=== PATIENT | female | born 1980 | race Caucasian/White ===

== ENCOUNTER → 2017-09-05 | Outpatient (CLI) | payer BC ==
[2017-09-05 14:02] VITALS: BP 141/88; PULSE 83; BMI 28.6
--- NOTE | 2017-09-05 14:40 | P.GSHP ---
History of Present Illness H&P Date: 09/05/17 The patient is a 36 year old white female who noted pain in her right breast after walking her dog about one month ago. The patient had a mammogram and ultrasound preformed as a part of her work up for breast pain. The ultrasound showed a lesion of concern. Patient does not feel any masses. No nipple discharge of changes of concern. Patient does not smoke. She drinks one cup of coffee/day, and on occasion ice-tea. She is not around smokers. family history: 1. two maternal aunts breast cancer 2. maternal grandfather lung cancer 3. paternal grandfather mesotheloma social history: smoke: none, stopped 8 years ago alcohol: occasional drugs: none past surgical history: 1. tubal 2. ablation/uterine for bleeding past medical history: 1. reflux menarche: 11 : first at 20, two pregnancies, did not breast feed ablation done at 30 BCP: none since 2009, used them for aout ten years hormones: none - Constitutional Constitutional: Denies chills, Denies fever - EENT Eyes: denies blurred vision, denies pain Ears: deny: decreased hearing, earache Ears, nose, mouth and throat: Denies headache, Denies sore throat - Breasts Breasts: bilateral: as per HPI - Cardiovascular Cardiovascular: Denies chest pain, Denies shortness of breath - Respiratory Respiratory: Denies cough, Denies 7 - Gastrointestinal Gastrointestinal: Denies abdominal pain, Denies diarrhea, Denies nausea, Denies vomiting - Genitourinary (Female) Genitourinary: Denies dysuria, Denies hematuria - Menstruation Menstruation: Reports as per HPI - Musculoskeletal Comment: mild arthritis in her knees - Integumentary Comment: skin lesion right lower leg, Integumentary: Reports pruritus, Denies rash - Neurological Neurological: Denies numbness, Denies weakness - Psychiatric Psychiatric: Denies anxiety, Denies depression - Endocrine Endocrine: Denies fatigue, Denies weight change - Hematologic/Lymphatic Comment: none - Allergic/Immunologic Allergic/Immunologic: Reports seasonal allergies Past Medical History Past Medical History: No Reported History History of Any Multi-Drug Resistant Organisms: None Reported Past Surgical History: Tubal Ligation Additional Past Surgical History / Comment(s): TUBAL IN 2009 Past Psychological History: No Psychological Hx Reported Smoking Status: Former smoker Past Alcohol Use History: Occasional Past Drug Use History: None Reported Medications and Allergies Home Medications Medication Instructions Recorded Confirmed Type Ibuprofen [Motrin] 600 mg PO Q6HR PRN #20 tab 05/24/14 Rx Allergies Allergy/AdvReac Type Severity Reaction Status Date / Time Penicillins Allergy Unknown Verified 05/24/14 17:56 Surgical - Exam Vital Signs Pulse BP Pulse Ox 83 141/88 99 09/05/17 13:58 09/05/17 13:58 09/05/17 13:58 - General obese - Eyes normal ocular movement, no icteric - ENT no hearing loss, no congestion - Neck no masses, trachea midline - Respiratory normal respiratory effort, clear to auscultation - Cardiovascular Rhythm: regular Heart Sounds: normal: S1, S2 - Abdomen Abdomen: soft, non tender, no guarding, no rigid, no rebound - Integumentary small patch of irritated skin right inner ankle - Neurologic no disoriented, no combative - Musculoskeletal normal gait, normal posture - Psychiatric oriented to time, oriented to person, oriented to place, speech is normal, memory intact BREAST: right breast: larger than the left breast, increased nodularity in the UOQ, corresponds to ultrasound change right axilla: no adenopathy of concern left breast: smaller than the right breast, no masses of concern left axilla: no adenopathy of concern Results Mammograms and ultrasound reviewed with Dr. Rogers Assessment and Plan Assessment: Imp/Plan: 1. right breast abnormal ultrasound/core biopsy recommended 2. discussed decrease caffeine Plan: 1. ultrasound core biopsy of hte right breast 2. decrease/stop caffeine intake CC: Dr. Ross
== END ==
LOC: WWCWWP 13:50
PROVIDERS: ATTEND Surgery
DX: N64.4 Mastodynia (principal); Z80.3 Family history of malignant neoplasm of breast; Z80.1 Family history of malignant neoplasm of trachea, bronchus and lung; Z87.891 Personal history of nicotine dependence; K21.9 Gastro-esophageal reflux disease without esophagitis

== ENCOUNTER → 2017-09-19 | Day surgery (SDC) | payer BC ==
--- NOTE | 2017-09-19 13:07 | USB ---
Discontinued right breast ultrasound biopsy HISTORY: Abnormal ultrasound Outside mammography and ultrasound was reviewed from [facility] dated 08/29/2017. The area in question was reimaged sonographically. Hypoechoic area could not be reproduced and was fe lt to reflect shadowing from overlying ligament. This was reviewed with the ordering physician and th e patient. Six-month follow-up mammography and ultrasound is advised of the right breast. Clinical Co rrelation is also recommended. Biopsy should not be delayed in the setting of a clinically suspicious abnormality. IMPRESSION: 1. BI-RADS 3 probably benign Recommendation: 1. Six-month follow-up mammography and ultrasound of the right breast.
== END ==
LOC: RADUSWWP 12:09
PROVIDERS: ATTEND Surgery
DX: R92.8 Other abnormal and inconclusive findings on diagnostic imaging of breast (principal); N63.10 Unspecified lump in the right breast, unspecified quadrant; Z53.8 Procedure and treatment not carried out for other reasons

== ENCOUNTER → 2017-09-26 | Outpatient (CLI) | payer BC ==
[2017-09-26 11:07] VITALS: BP 138/84; PULSE 87; BMI 28.6
--- NOTE | 2017-09-26 11:39 | P.PN ---
Progress Note - Text Progress Note Date: 09/26/17 Patient continues to have intermittent right breast discomfort. It seems to start from the axillary area and radiated towards the nipple. She has not had any caffeine for approximately 2 weeks. The pain is described as sharp with a burning component. It will last approximately 5-10 minutes. There are no initiating events for the pain. The patient was scheduled for a right breast core biopsy on . However when the ultrasound was repeated no lesion of concern was identified and the recommendation was 6 month follow-up mammogram and ultrasound of the right breast. Patient with no fever or chills. No redness of the breast. PE: right breast: Right breast is larger than the left breast, multiple positional exam fibrocystic changes with greatest breast density in the upper outer quadrant region, no discrete masses Right axilla: Area of tendons in the right axilla anteriorly appear to be tender and firm or than the left side to palpation no adenopathy of concern Left breast: Fibrocystic changes smaller than the right breast without dominant masses or nodules of concern Left axilla: No adenopathy of concern Impression/plan: 1. Tenderness right breast no radiographic abnormalities to warm biopsy at this time 2. Patient has stopped caffeine intake fibrocystic changes 3. Probable musculoskeletal pain Plan: 1. Repeat right breast mammogram and ultrasound in 6 months time with appointment at that time 2. Continue to stay off the caffeine 3. Ibuprofen related to musculoskeletal pain CC: DR. Angélica Ross
== END ==
LOC: WWCWWP 10:41
PROVIDERS: ATTEND Surgery
DX: N64.4 Mastodynia (principal); Z53.9 Procedure and treatment not carried out, unspecified reason

== ENCOUNTER → 2018-02-28 | Outpatient (CLI) | payer OTHER ==
--- NOTE | 2018-03-12 09:45 | MM ---
Reason for exam: follow-up at short interval from prior study. Last mammogram was performed 6 months ago. History: Family history of breast cancer in 2 maternal aunts at age 70. US discontinued breast bx RT of the right breast, September 19, 2017. Physical Findings: Nurse did not find any significant physical abnormalities on exam. MG 3D Diag Mammo W/Cad RT CC and MLO view(s) were taken of the right breast. Prior study comparison: August 27, 2017, mammogram, performed at [facility]. The breast tissue is heterogeneously dense. This may lower the sensitivity of mammography. No suspicious abnormality. No significant new findings when compared with previous films. These results were verbally communicated with the patient and result sheet given to the patient on 03/12/18. ASSESSMENT: Negative, BI-RAD 1 RECOMMENDATION: Routine screening mammogram of both breasts in 6 months. Back on schedule.
--- NOTE | 2018-03-12 09:51 | USB ---
Reason for exam: follow-up at short interval from prior study. History: Family history of breast cancer in 2 maternal aunts at age 70. US discontinued breast bx RT of the right breast, September 19, 2017. US Breast RT Right complete breast ultrasound includes all four quadrants, the retroareolar region and axilla. Finding demonstrates no cystic or solid lesion seen. No correlate to prior sonographic finding possible shadowing from ligaments. Scattered dense tissue seen. These results were verbally communicated with the patient and result sheet given to the patient on 03/12/18. ASSESSMENT: Negative, BI-RAD 1 RECOMMENDATION: Routine screening mammogram of both breasts in 6 months. Back on schedule.
== END | disposition home or self-care (01) ==
LOC: RADMAMWWP 09:11
PROVIDERS: ATTEND Surgery
DX: R92.8 Other abnormal and inconclusive findings on diagnostic imaging of breast (principal)
CPT/HCPCS: 77061; 77065

== ENCOUNTER → 2018-03-07 | Outpatient (CLI) | payer BC ==
[2018-03-07 10:25] VITALS: BP 143/83; PULSE 71; RESP 18; TEMP 98.4; BMI 25.7
--- NOTE | 2018-03-07 10:42 | P.PN ---
Subjective Progress Note Date: 03/07/18 Principal diagnosis: right breast pain Renetta is a 37-year-old white female who initially was complaining of pain in her right breast. The pain has decreased since her last visit. She has decreased her caffeine intake. Additionally she was walking her dog and the dog was pulling on a leash that she was holding with the right arm. The pain in her right chest wall/breast area has decreased since she has stopped walking the dog. The patient had a repeat right breast mammogram and ultrasound on February 28. We are waiting her mammograms from [facility] before these films are read and so no report has been issued yet on these films. The patient has not felt any lumps or masses in her breast. She does not complain of any nipple discharge or skin changes. caffiene: none at this time Nicotine: No exposure Chocolate: Minimal Medical History: 1. recently admitted with pneumonia Objective - Vital Signs Vital signs: Vital Signs Temp 98.4 F 03/07/18 10:17 Pulse 71 03/07/18 10:17 Resp 18 03/07/18 10:17 BP 143/83 03/07/18 10:17 Pulse Ox 97 03/07/18 10:17 Intake & Output 03/06/18 03/07/18 03/07/18 18:59 06:59 18:59 Weight 78.925 kg - Exam BMI 25.7 - Constitutional General appearance: Present: average body habitus, cooperative, no acute distress - EENT Eyes: Present: EOMI, dentition normal, normal appearance ENT: Present: hearing grossly normal - Neck Neck: Present: normal ROM - Respiratory Respiratory: bilateral: CTA - Cardiovascular Rhythm: regular Heart sounds: normal: S1, S2 - Gastrointestinal General gastrointestinal: Present: soft - Integumentary Integumentary: Present: normal turgor - Musculoskeletal Musculoskeletal: Present: gait normal - Psychiatric Psychiatric: Present: A&O x's 3, appropriate affect, intact judgment & insight - Additional findings Additional findings: Breast examination: Right breast is larger than the left breast, multiple positional exam fibrocystic changes but no dominant masses or nodules of concern Right axilla: No adenopathy of concern Left breast: Fibrocystic changes, increased density in the upper-outer quadrant area most likely fibrocystic changes FNA is recommended Left axilla: No adenopathy of concern Assessment and Plan Assessment: Impression: 1. Fibrocystic breast changes with increased nodularity left breast upper outer quadrant area 2. Recent mammogram awaiting the report until films from [facility] are obtained for review 3. Recently treated for pneumonia 4. Improved breast pain, patient is not taking in any caffeine, patient has stopped walking the dog pole and her right arm from a leash Plan: 1. FNA area of increased nodularity in the left breast 2. Await report on mammograms 3. Follow up next week for report on mammograms as well as FNA results CC: DR. Crowder
--- NOTE | 2018-03-07 10:48 | P.PCN ---
Date of Procedure: 03/07/18 Preoperative Diagnosis: fullness left breast UOQ Postoperative Diagnosis: same Procedure(s) Performed: left breast FNA Surgeon: Hiral Welch Pathology: other (FNA UOQ) Condition: stable Disposition: same day Indications for Procedure: Fullness left breast upper outer quadrant probable fibrocystic changes Description of Procedure: The left breast was prepped with alcohol the upper outer quadrant. A 21-gauge needle was passed into the area of increased density and several passes were placed with suction on the syringe such that cells were obtained. The cells were prepped for pathology. Patient tolerated procedure in stable condition. The patient will follow up next week for results. cc: Dr. Ross
== END | disposition home or self-care (01) ==
LOC: WWCWWP 09:10
PROVIDERS: ATTEND Surgery
DX: N64.89 Other specified disorders of breast (principal)
CPT/HCPCS: 88173; 88305

== ENCOUNTER → 2018-05-22 | Outpatient (CLI) | payer OTHER ==
[2018-05-22 12:46] VITALS: BP 121/78; PULSE 86; RESP 18; TEMP 98.2; BMI 25.6
--- NOTE | 2018-05-22 13:01 | P.PN ---
Subjective Progress Note Date: 05/22/18 Principal diagnosis: right breast pain Is a 37-year-old white female who was initially seen in August 2017 with a complaint of right breast pain after walking her dog. The patient had a mammogram and ultrasound performed at that time as part of her workup for the breast pain. The ultrasound showed a lesion of concern but when an attempt was made for ultrasound-guided biopsy the lesion was no longer noted. The patient did undergo an FNA of the left breast in February 2018 which was benign. The patient states that 2 weeks ago she noted increased pain in the right breast. It is described as burning. She has no nipple discharge or changes. No infection, or trauma to the breast. The pain has decreased, and is intermittent at this time. The pain was never cylical. The pain was never in the left breast. She does not drink caffiene, she does not smoke, no exposure to second hand smoke. She eats chocolate one a month. She does not note anything new when the pain started. She does not have periods since 2011 when she had a uterine ablation. Alejandra Risk: 0.7%, lifetime risk: 11.1% Family history: 1. 2 maternal aunts with breast cancer 2. Maternal grandfather lung cancer 3. Paternal grandfather mesotheloma Objective - Vital Signs Vital signs: Intake & Output 05/21/18 05/22/18 05/22/18 18:59 06:59 18:59 Weight 79.832 kg - Exam BMI 25.6 - Constitutional General appearance: Present: average body habitus - EENT Eyes: Present: EOMI ENT: Present: hearing grossly normal - Neck Neck: Present: normal ROM - Respiratory Respiratory: bilateral: CTA - Cardiovascular Rhythm: regular Heart sounds: normal: S1, S2 - Gastrointestinal General gastrointestinal: Present: soft - Integumentary Integumentary: Present: normal turgor - Musculoskeletal Musculoskeletal: Present: gait normal - Psychiatric Psychiatric: Present: A&O x's 3, appropriate affect, intact judgment & insight - Additional findings Additional findings: breast exam: right breast: multipositional exam, dense fibrocystic breast tissue, larger than the left breast, no discreate masses right axilla: no adenopathy of concern left breast: no masses on multipositional exam left axilla: no adenopathy of concern Assessment and Plan Assessment: impression: 1. recurrent breast pain 2. family history of breast cancer 3. asymetric breast tissue 4. fibrocystic breast disease Plan: 1. review causes of breast pain with the patient/done and book given 2. repeat right breast ultrasound 3. consider genetic counselling 4. follow up after the ultrasound CC: Dr. Ross
== END | disposition home or self-care (01) ==
LOC: WWCWWP 12:16
PROVIDERS: ATTEND Surgery
DX: Z53.9 Procedure and treatment not carried out, unspecified reason (principal)

== ENCOUNTER → 2018-06-05 | Outpatient (CLI) | payer OTHER ==
--- NOTE | 2018-06-05 10:13 | USB ---
Reason for exam: clinical finding. History: Family history of breast cancer in 2 maternal aunts at age 70. US discontinued breast bx RT of the right breast, September 19, 2017. Indicated problem(s): pain in the right breast. Physical Findings: Nurse Summary: all soft, movable (nurse ts). US Breast RT Right complete breast ultrasound includes all four quadrants, the retroareolar region and axilla. Finding demonstrates no cystic or solid lesion seen. These results were verbally communicated with the patient and result sheet given to the patient on 06/05/18. ASSESSMENT: Negative, BI-RAD 1 RECOMMENDATION: Routine screening mammogram of both breasts in 3 months. Back on schedule.
== END | disposition home or self-care (01) ==
LOC: RADUSWWP 09:18
PROVIDERS: ATTEND Surgery
DX: N64.4 Mastodynia (principal)

== ENCOUNTER → 2018-06-12 | Outpatient (CLI) | payer OTHER ==
[2018-06-12 15:47] VITALS: BP 122/73; PULSE 77; RESP 16; TEMP 98.5; BMI 25.7
--- NOTE | 2018-06-12 16:03 | P.PN ---
Progress Note - Text Progress Note Date: 06/12/18 Renetta is a 37-year-old white female who was seen last on Saturday. The patient was initially seen in August 2017 with a complaint of right breast discomfort. She had a mammogram and ultrasound performed at that time as part of her workup for the breast pain. The ultrasound showed a lesion of concern but when an attempt was made for ultrasound-guided biopsy of the lesion was no longer noted. The patient has most recently had a right breast ultrasound performed on . This is benign BIRADS 1. She is due for routine screening of both breasts in 3 months. She states that she continues to have right breast discomfort which is slightly improved. She just put a Patrick layer but has not started taking it at this time. The patient comes in today for repeat results of her ultrasound. No physicScheelal examination was performed today. Impression: 1. Right breast discomfort 2. Family history of breast cancer 3. Asymmetric breast tissue 4. Fibrocystic breast disease Plan: 1. The patient's right breast ultrasound does not show any lesions of concern 2. Repeat bilateral mammogram in 3 months with physician exam at that time Cc: Dr. Ross
== END ==
LOC: WWCWWP 15:34
PROVIDERS: ATTEND Surgery
DX: Z53.9 Procedure and treatment not carried out, unspecified reason (principal)

== ENCOUNTER → 2018-09-10 | Outpatient (CLI) | payer OTHER ==
--- NOTE | 2018-09-10 14:25 | MM ---
Reason for exam: screening (asymptomatic). Last mammogram was performed 6 months ago. History: Family history of breast cancer in 2 maternal aunts at age 70. US discontinued breast bx RT of the right breast, September 19, 2017. Physical Findings: A clinical breast exam by your physician is recommended on an annual basis and results should be correlated with mammographic findings. MG 3D Screening Mammo W/Cad Bilateral CC and MLO view(s) were taken. Prior study comparison: February 28, 2018, right breast MG 3d diag mammo w/cad RT. August 27, 2017, mammogram, performed at [facility]. The breast tissue is heterogeneously dense. This may lower the sensitivity of mammography. No significant changes when compared with prior studies. ASSESSMENT: Benign, BI-RAD 2 RECOMMENDATION: Routine screening mammogram of both breasts in 1 year.
== END | disposition home or self-care (01) ==
LOC: RADMAMWWP 08:59
PROVIDERS: ATTEND Surgery
DX: Z12.31 Encounter for screening mammogram for malignant neoplasm of breast (principal)
CPT/HCPCS: 77063; 77067

== ENCOUNTER → 2018-09-12 | Outpatient (CLI) | payer OTHER ==
[2018-09-12 09:41] VITALS: BP 135/81; PULSE 55; RESP 16; TEMP 98.4; BMI 27.3
--- NOTE | 2018-09-12 10:10 | P.PN ---
Subjective Progress Note Date: 09/12/18 Principal diagnosis: Renetta is a 37-year-old white female who was initially seen in April 2018 with a complaint of right breast pain was noted after walking her dog. She had a mammogram and ultrasound performed at that time as part of her workup. The ultrasound had shown a lesion of concern. We will attempt was made for ultrasound-guided core biopsy of the lesion was no longer present. The patient had a recent mammogram performed on , the results were benign BIRADS 2 and recommendation for repeat bilateral mammogram in 1 year. The patient tried primrose oil however she was unable to take this secondary to abdominal pain. She does not drink caffeinated beverages, she does not eat large amounts of chocolate, she does not smoke and has no exposure to secondhand smoke. She does not use control pills and is not on hormones. Family history: 1. 2 maternal aunts with breast cancer 2. Maternal grandfather lung cancer 2. Paternal grandfather mesothelioma Past Surgical History: 1. tubaligation Past Medical History: none Objective - Vital Signs Vital signs: Vital Signs Temp 98.4 F 09/12/18 09:35 Pulse 55 L 09/12/18 09:35 Resp 16 09/12/18 09:35 BP 135/81 09/12/18 09:35 Pulse Ox 98 09/12/18 09:35 Intake & Output 09/11/18 09/12/18 09/12/18 18:59 06:59 18:59 Weight 83.915 kg - Exam BMI 27.3 - Constitutional General appearance: Present: average body habitus - EENT Eyes: Present: EOMI ENT: Present: hearing grossly normal - Neck Neck: Present: normal ROM - Respiratory Respiratory: bilateral: CTA - Cardiovascular Rhythm: regular Heart sounds: normal: S1, S2 - Gastrointestinal Gastrointestinal Comment(s): no guarding or rebound General gastrointestinal: Present: soft - Musculoskeletal Musculoskeletal: Present: gait normal - Psychiatric Psychiatric: Present: A&O x's 3, appropriate affect, intact judgment & insight - Additional findings Additional findings: Breast examination: Right breast: Slightly larger than left breast multiple positional exam no dominant masses or nodules of concern Right axilla: No adenopathy of concern left breast: Multiple positional exam fibrocystic changes Left axilla: No adenopathy of concern Mammogram results 09-10-18 reviewed Assessment and Plan Assessment: Impression: 1. Resolved mastodynia 2.fibrocystic breast disease 3. asymetric breast (right larger than left) 4. family history of cancer Plan: 1. repeat mammogram in 1 year with appointment CC: Vandana
== END ==
LOC: WWCWWP 08:55
PROVIDERS: ATTEND Surgery
DX: Z53.9 Procedure and treatment not carried out, unspecified reason (principal)

== ENCOUNTER → 2019-02-10 | Outpatient (CLI) | payer OTHER ==
--- NOTE | 2019-02-10 14:56 | XR ---
EXAMINATION TYPE: XR KUB DATE OF EXAM: 02/10/2019 1:36 PM CLINICAL HISTORY: Nephrolithiasis TECHNIQUE: Single supine KUB image of the abdomen is obtained. COMPARISON: None. FINDINGS: Multiple phleboliths are seen within the pelvis. No sizable calcifications overlying the re nal shadows or courses of the ureters. Moderate degree colonic fecal stasis in the right hemicolon ae rated osseous structures appear intact. No dilated large or small bowel IMPRESSION: No sizable calculi overlying the renal shadows or courses of the ureters. Numerous phlebo liths within the pelvis.
== END | disposition home or self-care (01) ==
LOC: RADXRMAIN 13:09
PROVIDERS: ATTEND Urology
DX: I87.8 Other specified disorders of veins (principal)
CPT/HCPCS: 74018

== ENCOUNTER → 2019-03-20 | Outpatient (CLI) | payer OTHER ==
--- NOTE | 2019-03-20 16:17 | US ---
EXAMINATION TYPE: US kidneys/renal and bladder DATE OF EXAM: 03/20/2019 COMPARISON: NONE CLINICAL HISTORY: N20.0 Calculus of kidney. Family history of polycystic kidneys EXAM MEASUREMENTS: Right Kidney: 12.3 x 7.5 x 6.9 cm Left Kidney: 13.3 x 7.3 x 6.4 cm Right Kidney: Innumerable renal cysts. Largest measuring 6.2 x 5.4 x 4.4 cm. Multiple echogenic foci visualized with twinkle artifact largest measuring 1.3 cm Left Kidney: Innumerable renal cysts largest measuring 3.2 x 2.5 x 2.9 cm. Multiple echogenic foci vi sualized, largest measuring 0.5 cm Bladder: wnl Bilateral Jets seen: Yes IMPRESSION: Innumerable cysts noted bilaterally as discussed above. Findings compatible polycystic kidney disease .
== END | disposition home or self-care (01) ==
LOC: RADUSWWP 15:35
PROVIDERS: ATTEND Urology
DX: N28.1 Cyst of kidney, acquired (principal)
CPT/HCPCS: 76770

== ENCOUNTER → 2019-09-14 | Outpatient (CLI) | payer OTHER ==
--- NOTE | 2019-09-14 11:05 | MM ---
Reason for exam: screening (asymptomatic). Last mammogram was performed 1 year ago. History: Family history of breast cancer in 2 maternal aunts at age 70. US discontinued breast bx RT of the right breast, September 19, 2017. Physical Findings: A clinical breast exam by your physician is recommended on an annual basis and results should be correlated with mammographic findings. MG 3D Screening Mammo W/Cad Bilateral CC and MLO view(s) were taken. Prior study comparison: September 10, 2018, bilateral MG 3d screening mammo w/cad. February 28, 2018, right breast MG 3d diag mammo w/cad RT. The breast tissue is heterogeneously dense. This may lower the sensitivity of mammography. Asymmetric breast tissue in the left breast posterior position is stable. There is no discrete abnormality. ASSESSMENT: Negative, BI-RAD 1 RECOMMENDATION: Routine screening mammogram of both breasts in 1 year.
== END | disposition home or self-care (01) ==
LOC: RADMAMWWP 08:38
PROVIDERS: ATTEND Surgery
DX: Z12.31 Encounter for screening mammogram for malignant neoplasm of breast (principal)
CPT/HCPCS: 77063; 77067

== ENCOUNTER → 2019-09-17 | Outpatient (CLI) | payer OTHER ==
[2019-09-17 15:02] VITALS: BP 118/69; PULSE 72; RESP 18; TEMP 98.4
--- NOTE | 2019-09-17 16:19 | P.PN ---
Subjective Progress Note Date: 09/17/19 Principal diagnosis: breast pain Renetta is a 37-year-old white female who was initially seen in April 2018 with a complaint of right breast pain was noted after walking her dog. She had a mammogram and ultrasound performed at that time as part of her workup. The ul trasound had shown a lesion of concern. When attempt was attempt was made for right breast ultrasound-guided core biopsy the lesion was no longer present. The patient had a recent mammogram performed on the results were benign BIRADS 1 and recommendation for repeat bilateral mammogram in 1 year. The patient tried primrose oil however she was unable to take this secondary to abdominal pain. She continues to have intermittent right lateral breast discomfort. Several times a week and the pain may be related to 7 in intensity and a scale of 1-10. It does not happen for any specific reason. It is localized burning in nature. She is not complaining of anything in the left breast. She is not complaining of any masses lumps or nodules in either breast. She is not complaining of any nipple discharge or skin changes. She has not had any recent history of trauma or infection in the breast. She does not drink caffeinated beverages, she does not eat large amounts of chocolate, she does not smoke and has no exposure to secondhand smoke. She does not use control pills and is not on hormones. She has no longer walking her dog because the dog pulls on her leash, she is 20 pounds. Family history: 1. 2 maternal aunts with breast cancer 2. Maternal grandfather lung cancer/ mesothelioma 2. Paternal grandfather mesothelioma Past Surgical History 1. tubaligation 2. right wisdom tooth removed Past Medical History: none Social History: smoke: none alcohol: none drugs: none ROS: HEENT: none Lungs: pneumonia last year, history of bronchitis heart: none GI: none : kidney stones? 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 hematologic: none endocrine:none Psychiatric: Negative Neurologic:: Negative allergies: PCN, BEE Objective - Vital Signs Vital signs: Vital Signs Temp 98.4 F 09/17/19 14:59 Pulse 72 09/17/19 14:59 Resp 18 09/17/19 14:59 BP 118/69 09/17/19 14:59 Pulse Ox 98 09/17/19 14:59 Intake & Output 09/16/19 09/17/19 09/17/19 18:59 06:59 18:59 Weight 86.183 kg - Exam BMI 27.7 - Constitutional General appearance: Present: average body habitus - EENT Eyes: Present: EOMI ENT: Present: hearing grossly normal - Neck Neck: Present: normal ROM - Respiratory Respiratory: bilateral: CTA - Cardiovascular Rhythm: regular Heart sounds: normal: S1, S2 - Gastrointestinal General gastrointestinal: Present: normal bowel sounds, soft - Integumentary Integumentary: Present: normal turgor - Musculoskeletal Musculoskeletal: Present: gait normal - Psychiatric Psychiatric: Present: A&O x's 3, appropriate affect, intact judgment & insight - Additional findings Additional findings: Breast Exam: BRA 38B inspection: bilateral grade 2 ptosis, right breast larger than left breast Palpation: Right breast: Multi-positional exam fibrocystic changes, no dominant masses or nodules of concern, right breast larger than left breast Right axilla: No adenopathy of concern Left breast: Multi-positional exam fibrocystic changes no dominant masses or nodules of concern Left axilla: No adenopathy of concern Assessment and Plan Assessment: Impression: 1. Fibrocystic breast changes bilateral 2. Asymmetry of the breast right larger than the left 3. Mastodynia no recent changes believed to be fibrocystic in nature 4. Patient could not tolerate primrose oil 5. Repeat right breast ultrasound if this is negative bilateral mammogram in 1 year Plan: 1. Right breast ultrasound this is negative bilateral mammogram in 1 year 2. Continue present therapy 3. Follow-up after right breast ultrasound CC:Dr. Angélica Ross encounter 20 minutes, > 50% of time in planning and counselling
== END | disposition home or self-care (01) ==
LOC: WWCWWP 14:45
PROVIDERS: ATTEND Surgery
DX: Z53.9 Procedure and treatment not carried out, unspecified reason (principal)

== ENCOUNTER → 2019-09-22 | Outpatient (CLI) | payer OTHER ==
--- NOTE | 2019-09-23 08:37 | USB ---
Reason for exam: clinical finding. History: Family history of breast cancer in 2 maternal aunts at age 70. US discontinued breast bx RT of the right breast, September 19, 2017. Physical Findings: Nurse Summary: all soft, nodular, movable, prominent nodularity noted (nurse ts). US Breast RT Technologist: Lucila Armijo Right complete breast ultrasound includes all four quadrants, the retroareolar region and axilla. Finding demonstrates no cystic or solid lesion seen. These results were verbally communicated with the patient and result sheet given to the patient on 09/22/19. ASSESSMENT: Negative, BI-RAD 1 RECOMMENDATION: Return to routine screening mammogram schedule for both breasts. Manage patient on a clinical basis.
== END | disposition home or self-care (01) ==
LOC: RADUSWWP 14:38
PROVIDERS: ATTEND Surgery
DX: R92.8 Other abnormal and inconclusive findings on diagnostic imaging of breast (principal)

== ENCOUNTER → 2019-10-02 | Outpatient (CLI) | payer OTHER ==
[2019-10-02 12:04] VITALS: BP 142/82; PULSE 57; RESP 18; TEMP 98.4
--- NOTE | 2019-10-02 12:48 | P.PN ---
Progress Note - Text Progress Note Date: 10/02/19 Renetta is a 37-year-old [place] [id number]. She was noted to have fibrocystic changes bilaterally. Most recent mammogram was on [id number] [id number], the results were benign BIRADS 1. The patient was recommended however to undergo [place] [address]. This was negative BIRADS 1. The patient is going to have repeat bilateral mammogram and physician exam in 1 year.
== END | disposition home or self-care (01) ==
LOC: WWCWWP 11:49
PROVIDERS: ATTEND Surgery
DX: Z53.9 Procedure and treatment not carried out, unspecified reason (principal)

== ENCOUNTER → 2020-09-19 | Outpatient (CLI) | payer OTHER ==
--- NOTE | 2020-09-20 13:54 | MM ---
Reason for exam: screening (asymptomatic). Last mammogram was performed 1 year ago. History: Family history of breast cancer in 2 maternal aunts at age 70. US discontinued breast bx RT of the right breast, September 19, 2017. Physical Findings: A clinical breast exam by your physician is recommended on an annual basis and results should be correlated with mammographic findings. MG 3D Screening Mammo W/Cad Bilateral CC and MLO view(s) were taken. Prior study comparison: September 14, 2019, bilateral MG 3d screening mammo w/cad. September 10, 2018, bilateral MG 3d screening mammo w/cad. The breast tissue is heterogeneously dense. This may lower the sensitivity of mammography. There is no discrete abnormality. No significant changes when compared with prior studies. ASSESSMENT: Negative, BI-RAD 1 RECOMMENDATION: Routine screening mammogram of both breasts in 1 year.
== END | disposition home or self-care (01) ==
LOC: RADMAMWWP 07:11
PROVIDERS: ATTEND Surgery
DX: Z12.31 Encounter for screening mammogram for malignant neoplasm of breast (principal); Z80.3 Family history of malignant neoplasm of breast
CPT/HCPCS: 77063; 77067

== ENCOUNTER → 2021-07-21 | Outpatient (CLI) | payer BC ==
[2021-07-21 09:15] VITALS: BP 139/90; PULSE 82; RESP 18; TEMP 98.2
--- NOTE | 2021-07-21 09:22 | P.PN ---
Subjective Progress Note Date: 07/21/21 Principal diagnosis: Breast pain breast pain Renetta is a 40-year-old white female who was initially seen in April 2018 with a complaint of right breast pain was noted after walking her dog. She had a mammogram and ultrasound performed at that time as part of her workup. The ultrasound had shown a lesion of concern. When attempt was attempt was made for right breast ultrasound-guided core biopsy the lesion was no longer present. The patient had a recent mammogram performed on the results were benign BIRADS 1 and recommendation for repeat bilateral mammogram in 1 year. The patient tried primrose oil however she was unable to take this secondary to abdominal pain. The patient's most recent mammogram was bilateral and [id number] which was negative BIRADS 1. She continues to have intermittent right lateral breast discomfort. The pain in her right breast stopped for a period of time but seemed to come back about 4 months ago, it has decreased. She does not know what precipitated it. She is not complaining of any masses lumps or nodules in either breast. She is not complaining of any nipple discharge or skin changes. She has not had any recent history of trauma or infection in the breast. CAffiene: Negative Nicotine: Negative She is not using control pills or hormones Family history: 1. 2 maternal aunts with breast cancer 2. Maternal grandfather lung cancer/ mesothelioma 2. Paternal grandfather mesothelioma Past Surgical History 1. tubaligation 2. right wisdom tooth removed 3. appy Past Medical History: none Social History: smoke: none alcohol: none drugs: none ROS: HEENT: none Lungs: pneumonia last year, history of bronchitis heart: none GI: none : kidney stones? 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 hematologic: none endocrine:none Psychiatric: Negative Neurologic:: Negative allergies: PCN, BEE Objective - Vital Signs Vital signs: Intake & Output 07/20/21 07/21/21 07/21/21 18:59 06:59 18:59 Weight 89.358 kg - Exam BMI 29 - Constitutional General appearance: Present: cooperative - EENT Eyes: Present: EOMI ENT: Present: hearing grossly normal - Neck Neck: Present: normal ROM - Respiratory Respiratory: bilateral: CTA - Cardiovascular Rhythm: regular Heart sounds: normal: S1, S2 - Gastrointestinal General gastrointestinal: Present: soft - Integumentary Integumentary: Present: normal turgor - Musculoskeletal Musculoskeletal: Present: gait normal - Psychiatric Psychiatric: Present: A&O x's 3, appropriate affect, intact judgment & insight - Additional findings Additional findings: Breast Exam: BRA 38B inspection: bilateral grade 2 ptosis, right breast larger than left breast Palpation: Right breast: Multi-positional exam fibrocystic changes, no dominant masses or nodules of concern, right breast larger than left breast; increased nodularity in the lateral aspect of the right breast which is tender to palpation Right axilla: No adenopathy of concern Left breast: Multi-positional exam fibrocystic changes no dominant masses or nodules of concern Left axilla: No adenopathy of concern Assessment and Plan Assessment: Impression: Fibrocystic breast changes Mastodynia greatest right breast lateral aspect/nodularity at this site Asymmetry of the breast with right breast larger than the left breast Plan: Bilateral diagnostic mammogram Ultrasound right breast with attention to the lateral aspect Follow-up after radiographic studies CC: Dr. Ross
== END | disposition home or self-care (01) ==
LOC: WWCWWP 08:58
PROVIDERS: ATTEND Surgery
DX: Z53.9 Procedure and treatment not carried out, unspecified reason (principal)

== ENCOUNTER → 2021-07-26 | Outpatient (CLI) | payer BC ==
--- NOTE | 2021-07-26 10:14 | MM ---
Reason for exam: additional evaluation requested from prior study. Last mammogram was performed 10 months ago. History: Family history of breast cancer in 2 maternal aunts at age 70. US discontinued breast bx RT of the right breast, September 19, 2017. Physical Findings: A clinical breast exam by your physician is recommended on an annual basis and results should be correlated with mammographic findings. MG 3D Diag Mammo W/Cad ERROL Bilateral CC and MLO view(s) were taken. Prior study comparison: September 19, 2020, bilateral MG 3d screening mammo w/cad. September 14, 2019, bilateral MG 3d screening mammo w/cad. The breast tissue is heterogeneously dense. This may lower the sensitivity of mammography. No significant new findings when compared with previous films. Results were given to the patient verbally at the time of the exam. ASSESSMENT: Benign, BI-RAD 2 RECOMMENDATION: Routine screening mammogram of both breasts in 1 year.
--- NOTE | 2021-07-26 10:16 | USB ---
Reason for exam: additional evaluation requested from prior study. History: Family history of breast cancer in 2 maternal aunts at age 70. US discontinued breast bx RT of the right breast, September 19, 2017. Physical Findings: A clinical breast exam by your physician is recommended on an annual basis and results should be correlated with mammographic findings. US Breast BILAT Right complete breast ultrasound includes all four quadrants, the retroareolar region and axilla. Finding demonstrates no cystic or solid lesion seen. Left complete breast ultrasound includes all four quadrants, the retroareolar region and axilla. Finding demonstrates no cystic or solid lesion seen. Results were given to the patient verbally at the time of the exam. ASSESSMENT: Negative, BI-RAD 1 RECOMMENDATION: Routine screening mammogram of both breasts in 1 year. Manage patient on a clinical basis.
== END | disposition home or self-care (01) ==
LOC: RADMAMWWP 08:43
PROVIDERS: ATTEND Surgery
DX: R92.8 Other abnormal and inconclusive findings on diagnostic imaging of breast (principal)
CPT/HCPCS: 77062; 77066

== ENCOUNTER → 2021-08-03 | Outpatient (CLI) | payer BC ==
--- NOTE | 2021-08-03 14:41 | P.PN ---
Progress Note - Text Progress Note Date: 08/03/21 Renetta was seen on 07-21-21 and breast exam was done at that time. She had a bilateral mammogram done on 5421 which was benign BIRADS 2. She had a bilateral ultrasound on the same day which was benign BIRADS 1. The patient is doing well and will be seen again in 1 year with repeat bilateral mammogram.
[2021-08-03 14:42] VITALS: BP 141/86; PULSE 65; RESP 16; TEMP 99
== END | disposition home or self-care (01) ==
LOC: WWCWWP 14:31
PROVIDERS: ATTEND Surgery
DX: Z53.9 Procedure and treatment not carried out, unspecified reason (principal)